=== PATIENT | male | born 1965 | race Caucasian/White ===

== ENCOUNTER 2024-02-01 15:00 | Emergency (ER) | payer BC ==
[2024-02-01 15:38] VITALS: BP 173/127; PULSE 96; RESP 16; TEMP 98.9; O2SAT 98
[2024-02-01 15:49] LABS: Absolute Neutrophil Ct (ANC) 4.97 x10^3/uL (1.78-5.38); BASOPHIL % 0.4 % (0.2-1.2); Basophil (Absolute #) 0.03 x10^3/uL (0.01-0.08); Eosinophil % 1.7 % (0.8-7.0); Eosinophil (Absolute #) 0.13 x10^3/uL (0.04-0.54); Hematocrit 32.5 % (40.1-51.0); Hemoglobin 11.6 g/dL (13.7-17.5); IMMATURE GRAN # 0.05 x10^3u/L (0.001-0.031); IMMATURE GRAN % 0.7 % (0.001-0.429); Lymphocyte (Absolute #) 1.68 x10^3/uL (1.32-3.57); Lymphocytes % 22.3 % (21.8-53.1); Mean Cell Volume 85.5 fL (79.0-92.2); Mean Corpuscular Hemoglobin 30.5 pg (25.7-32.2); Mean Corpuscular Hgb Concent. 35.7 g/dL (32.3-36.5); Mean Platelet Volume 8.7 fL (9.4-12.4); Monocyte (Absolute #) 0.66 x10^3/uL (0.30-0.82); Monocytes % 8.8 % (5.3-12.2); Neutrophil % 66.1 % (34.0-67.9); Platelet Count 162 x10^3/uL (163-337); Red Cell Distribution Width 11.7 % (11.6-14.4); White Blood Count 7.5 x10^3/uL (4.23-9.07)
[2024-02-01] MEDS ORDERED: TRANDATE 20 MG/4 ML SYRINGE IV ONE (15:54)
[2024-02-01] MEDS: TRANDATE 20 MG/4 ML SYRINGE IV ONE (15:56)
[2024-02-01 16:07] LABS: ANION GAP 14.7 MEQ/L (5-15); BILIRUBIN,TOTAL 0.4 mg/dL (0.2-1.3); Calcium 9.7 mg/dL (8.4-10.2); Creatinine 1 0.99 mg/dL (0.66-1.25); EST GLOMERULAR FILTRATION RATE 88.9 ML/MIN; Potassium 4.3 mmol/L (3.5-5.1); Total Protein 7.2 g/dL (6.3-8.2)
[2024-02-01 16:19] LABS: TROPONIN 0.022 ng/mL (0.000-0.033)
[2024-02-01 17:07] LABS: INR 0.91 (0.8-3.0)
--- NOTE | 2024-02-01 23:05 | ERPHSYRPT ---
- History of Present Illness Time Seen by Provider: 02/01/24 15:03 Source: patient Exam Limitations: no limitations Patient Subjective Stated Complaint: C/O headache and neck ache; states related to elevated B/P. Patient was seen by Cleo Wilkinson NP today and was instructed to be seen in the ER. Triage Nursing Assessment: Patient is alert and oriented. No SOB. Skin tone normal except to BLE. Brown discoloration noted to BLE. Some edema present to BLE; left worse than right. ANDRADE PATRICIA. Physician History: 58-year-old male with history of hypertension, diabetes mellitus, tobacco use presented to the ER from primary care office with uncontrolled hypertension. Patient reports his blood pressure has lately been staying high despite taking his medication and also having dull aching pain in the neck and headache especi ally after he gets up from sleep, last for a while and after taking Tylenol ibuprofen started to improve. Lately it is getting worse. Denies any numbness tingling or focal weakness. No visual disturbance. Denies any chest pain palpitations or shortness of breath. No abdominal pain nausea or vomiting. Blood pressure in 190s on presentation to ER with heart rate in upper 90s and low 100s. Allergies/Adverse Reactions: No Known Drug Allergies Allergy (Verified 02/01/24 15:28) Home Medications: Amlodipine Besylate 5 mg [Norvasc 5 mg] 5 mg PO HS 02/01/24 [History] Losartan Potassium [Cozaar] 100 mg PO HS 02/01/24 [History] Sitagliptin Phosphate [Januvia] 100 mg PO HS 02/01/24 [History] Hx Tetanus, Diphtheria Vaccination/Date Given: Yes Hx Influenza Vaccination/Date Given: No Immunizations Up to Date: Yes Travel Risk - International Travel Have you traveled outside of the country in past 3 weeks: No - Emerging Infectious Disease Are you exhibiting symptoms associated with any current EIDs: Yes Symptoms: Headaches/Body Aches/ - Review of Systems Constitutional: No Symptoms Eyes: No Symptoms Ears, Nose, & Throat: No Symptoms Respiratory: No Symptoms Cardiac: No Symptoms Abdominal/Gastrointestinal: No Symptoms Musculoskeletal: Neck Pain Skin: No Symptoms Neurological: Headache Psychological: No Symptoms Endocrine: No Symptoms Hematologic/Lymphatic: No Symptoms - Past Medical History Pertinent Past Medical History: Yes Neurological History: No Pertinent History ENT History: No Pertinent History Cardiac History: Hypertension Respiratory History: No Pertinent History Endocrine Medical History: Diabetes Type I Musculoskeletal History: No Pertinent History GI Medical History: No Pertinent History History: No Pertinent History Psycho-Social History: No Pertinent History Male Reproductive Disorders: No Pertinent History - Past Surgical History Past Surgical History: Yes Neuro Surgical History: No Pertinent History Cardiac: No Pertinent History Respiratory: No Pertinent History Gastrointestinal: No Pertinent History Genitourinary: No Pertinent History Musculoskeletal: No Pertinent History Male Surgical History: Prostate Surgery - Social History Smoking Status: Never smoker Exposure to second hand smoke: No Drug Use: none - Social Determinants of Health Will the patient participate in the screening: Yes Do you worry about a steady place to live?: No Do you have any problems with any of the following?: No known problems In the past 12 months,have you had to go without utilities?: No Transportation Issues: No Has anyone in your support network made you feel unsafe?: No Have you or anyone in your house had to go without enough: No - Nursing Vital Signs Nursing Vital Signs: Initial Vital Signs Temperature 98.9 F 02/01/24 15:25 Pulse Rate 96 H 02/01/24 15:25 Respiratory Rate 16 02/01/24 15:25 Blood Pressure 173/127 02/01/24 15:25 O2 Sat by Pulse Oximetry 98 02/01/24 15:25 Pain Scale Pain Intensity 5 - Physical Exam General Appearance: no apparent distress, alert Eye Exam: PERRL/EOMI, eyes nml inspection, No scleral icterus, No pale conjunctivae Ears, Nose, Throat Exam: normal ENT inspection Neck Exam: normal inspection, non-tender, supple, full range of motion, No meningismus, No Brudzinski Respiratory Exam: normal breath sounds, lungs clear Cardiovascular Exam: regular rate/rhythm, normal heart sounds Gastrointestinal/Abdomen Exam: soft, normal bowel sounds, No tenderness Back Exam: normal inspection, normal range of motion Extremity Exam: normal inspection, normal range of motion, pelvis stable Neurologic Exam: alert, oriented x 3, cooperative, 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 nml as tested, nml cerebellar function, nml station & gait, sensation nml, No motor deficits Skin Exam: normal color SpO2 Interpretation: normal SpO2: 98 O2 Delivery: Room Air - Course EKG Interpreted by Me: RATE (90), Sinus Rhythm, NORMAL AXIS, NORMAL INTERVALS, Non-specific ST Changes Ordered Tests: Medication Summary Discontinued Medications Generic Name Dose Route Start Last Admin Trade Name Aubrey PRN Reason Stop Dose Admin Labetalol HCl 10 mg 02/01/24 15:45 02/01/24 15:56 Labetalol Hcl 20 Mg/4 Ml Disp.Syringe IV 02/01/24 15:46 10 mg STAT ONE Administration Labetalol HCl Confirm 02/01/24 15:54 Labetalol Hcl 20 Mg/4 Ml Disp.Syringe Administered 02/01/24 15:55 Dose 20 mg IV .STK-MED ONE Lab/Rad Data: Laboratory Result Diagrams 02/01/24 15:40 02/01/24 15:40 Laboratory Results 02/01/24 02/01/24 02/01/24 Range/Units 15:40 15:40 15:40 WBC (4.23-9.07) x10^3/uL RBC (4.63-6.08) x10^6/uL Hgb (13.7-17.5) g/dL Hct (40.1-51.0) % MCV (79.0-92.2) fL MCH (25.7-32.2) pg MCHC (32.3-36.5) g/dL RDW (11.6-14.4) % Plt Count (163-337) x10^3/uL MPV (9.4-12.4) fL Gran % (34.0-67.9) % Immature Gran % (Auto) (0.001-0.429) % Nucleat RBC Rel Count (0.00-0.2) % Eos # (Auto) (0.04-0.54) x10^3/uL Immature Gran # (Auto) (0.001-0.031) x10^3u/L Absolute Lymphs (auto) (1.32-3.57) x10^3/uL Absolute Monos (auto) (0.30-0.82) x10^3/uL Absolute Nucleated RBC (0.00-0.012) x10^3u/L Lymphocytes % (21.8-53.1) % Monocytes % (5.3-12.2) % Eosinophils % (0.8-7.0) % Basophils % (0.2-1.2) % Absolute Granulocytes (1.78-5.38) x10^3/uL Basophils # (0.01-0.08) x10^3/uL PT 10.0 (9.4-12.5) SECONDS INR 0.91 (0.8-3.0) APTT 27.0 (25.1-36.5) SECONDS Sodium 136 (135-145) mmol/L Potassium 4.3 (3.5-5.1) mmol/L Chloride 102 (98-107) mmol/L Carbon Dioxide 23 (22-30) mmol/L Anion Gap 14.7 (5-15) MEQ/L BUN 16 (9-20) mg/dL Creatinine 0.99 (0.66-1.25) mg/dL Estimated GFR 88.9 ML/MIN Glucose 144 H (74-106) mg/dL Calcium 9.7 (8.4-10.2) mg/dL Total Bilirubin 0.40 (0.2-1.3) mg/dL AST 33 (17-59) U/L ALT 37 (0-50) U/L Alkaline Phosphatase 92 (38-126) U/L Creatine Kinase 55 (55-170) U/L Troponin I 0.022 (0.000-0.033) ng/mL NT-Pro-B Natriuret Pep 185 (<300) pg/mL Serum Total Protein 7.2 (6.3-8.2) g/dL Albumin 4.0 (3.5-5.0) g/dL 02/01/24 Range/Units 15:40 WBC 7.5 (4.23-9.07) x10^3/uL RBC 3.80 L (4.63-6.08) x10^6/uL Hgb 11.6 L (13.7-17.5) g/dL Hct 32.5 L (40.1-51.0) % MCV 85.5 (79.0-92.2) fL MCH 30.5 (25.7-32.2) pg MCHC 35.7 (32.3-36.5) g/dL RDW 11.7 (11.6-14.4) % Plt Count 162 L (163-337) x10^3/uL MPV 8.7 L (9.4-12.4) fL Gran % 66.1 (34.0-67.9) % Immature Gran % (Auto) 0.7 H (0.001-0.429) % Nucleat RBC Rel Count 0.0 (0.00-0.2) % Eos # (Auto) 0.13 (0.04-0.54) x10^3/uL Immature Gran # (Auto) 0.05 H (0.001-0.031) x10^3u/L Absolute Lymphs (auto) 1.68 (1.32-3.57) x10^3/uL Absolute Monos (auto) 0.66 (0.30-0.82) x10^3/uL Absolute Nucleated RBC 0.00 (0.00-0.012) x10^3u/L Lymphocytes % 22.3 (21.8-53.1) % Monocytes % 8.8 (5.3-12.2) % Eosinophils % 1.7 (0.8-7.0) % Basophils % 0.4 (0.2-1.2) % Absolute Granulocytes 4.97 (1.78-5.38) x10^3/uL Basophils # 0.03 (0.01-0.08) x10^3/uL PT (9.4-12.5) SECONDS INR (0.8-3.0) APTT (25.1-36.5) SECONDS Sodium (135-145) mmol/L Potassium (3.5-5.1) mmol/L Chloride (98-107) mmol/L Carbon Dioxide (22-30) mmol/L Anion Gap (5-15) MEQ/L BUN (9-20) mg/dL Creatinine (0.66-1.25) mg/dL Estimated GFR ML/MIN Glucose (74-106) mg/dL Calcium (8.4-10.2) mg/dL Total Bilirubin (0.2-1.3) mg/dL AST (17-59) U/L ALT (0-50) U/L Alkaline Phosphatase (38-126) U/L Creatine Kinase (55-170) U/L Troponin I (0.000-0.033) ng/mL NT-Pro-B Natriuret Pep (<300) pg/mL Serum Total Protein (6.3-8.2) g/dL Albumin (3.5-5.0) g/dL - Progress Progress: improved Progress Note: 02/01/24 48-year-old is evaluated in the ER for headache and neck pain with elevated pressure. This has been going on for the last few days and lately getting worse than usual. Blood pressure is in 190s. EKG did not show any acute ST elevations. He is given labetalol and blood pressure is better. Patient workup showed normal white count, fairly unremarkable chemistries and negative troponin. I have recommended CT head/cervical spine and chest x-ray but patient does not want to get it done. Patient this high blood pressure, headache and neck pain, could be carotid dissection/vertebral artery dissection but patient does not want anything to be done and wants to leave as his blood pressure is better. Has no signs of meningismus. Patient is afebrile. He is thoroughly counseled but he is adamant about leaving as he does not want to have his other issues addressed. Patient wants to leave AGAINST MEDICAL ADVICE, he is not confused or altered at all. He is advised to follow-up with his primary care. Counseled pt/family regarding: lab results, diagnosis, need for follow-up Medical Desision Making - Diagnostic Testing Diagnostic test were ordered, analyzed, and reviewed by me: Yes - Risk of complications The pt has a mod risk of morbidity or mortality based on: Need for prescription drug management - Departure Departure Disposition: AMA Clinical Impression: Uncontrolled hypertension, Headache, Neck pain Condition: Stable Critical Care Time: No Referrals: CLEO WILKINSON NP [Primary Care Provider] - Follow up/PCP as directed
== END 2024-02-01 17:36 | disposition left against medical advice (07) ==
LOC: ED 15:00
DX: I10 Essential (primary) hypertension (principal); R51.9 Headache, unspecified; M54.2 Cervicalgia; E10.9 Type 1 diabetes mellitus without complications; Z79.84 Long term (current) use of oral hypoglycemic drugs; Z79.899 Other long term (current) drug therapy; Z72.0 Tobacco use
CPT/HCPCS: 36000; 36415; 80053; 82550; 83880; 84484; 85025; 85610; 85730; 93005; 93041; 99284